=== PATIENT | male | born 1955 | race Caucasian/White ===

== ENCOUNTER 2022-01-05 07:01 | Day surgery (SDC) | payer OTHER, MEDICARE ==
[~2022-01-05 07:01] MED LIST: ASCO500 PO; ASPI325; ASPI81CH PO; ATOR40TA PO; DIALYVITE 8001 EACH PO; FISH OIL 1,2001 EAC7 PO; FISH1000 PO; GABA300 PO; INSULANI SUBQ; INSULANPEN SC; LIVALO2 MG PO; Lisinopril2.5 MG PO; METF500 PO; METO50ER; MULTI VITAMIN1 EACH PO; MULVITMINF PO; NOVOLOG100 UNIT/3 SC; OMEP20ER PO
--- NOTE | 2022-01-05 10:26 | NUR ---
PT AND VERBALIZED UNDERSTANDING OF WRITTEN AND VERBAL D/C INST. -BLEEDING OR SWELLING L UPPER CHEST AREA. PT AMB OUT OF THE HRT CENTER /S DIFFICULTY. IV REMOVED.
== END 2022-01-05 10:30 | disposition home or self-care (01) ==
LOC: MHTC 07:01
DX: Z45.010 Encounter for checking and testing of cardiac pacemaker pulse generator [battery] (principal); I25.10 Atherosclerotic heart disease of native coronary artery without angina pectoris; K21.9 Gastro-esophageal reflux disease without esophagitis; Z88.5 Allergy status to narcotic agent
CPT/HCPCS: 33228; 99152; 99153; C1781; C1785; J0690; J1580; J1644; J2250; J3010; J7030; J7040

== ENCOUNTER → 2023-09-20 | Outpatient (CLI) | payer OTHER, MEDICARE | END | disposition home or self-care (01) | LOC: LAB SHORT 07:20 → LAB 07:20 | DX: E10.9 Type 1 diabetes mellitus without complications (principal) | CPT/HCPCS: 82043 ==

== ENCOUNTER → 2024-02-12 | Outpatient (CLI) | payer OTHER, MEDICARE | END | disposition home or self-care (01) | LOC: LAB SHORT 10:00 → LAB 10:00 | DX: H60.393 Other infective otitis externa, bilateral (principal) | CPT/HCPCS: 87070; 87205 ==